=== PATIENT | female | born 1960 | race Caucasian/White ===

== ENCOUNTER → 2017-01-29 | Outpatient (CLI) | payer OTHER ==
[~2017-01-29] MED LIST: DOXY150C2; LEVO25TA6; LEVO75TA6; PANTPAK; PRO20T; PROPRANOLOL 20 MG TABLET; RANI-185; ROSU10TA16; SIMV20TA90; [UNRECOGNIZED DRUG - CODE]
[2017-01-29 15:57] LABS: Basophils # (auto) 0 uL; Basophils % (auto) 0.6 % (0.0-2.0); Eosinophils # (auto) 0.1 uL; Eosinophils % (auto) 1.8 % (0.0-7.0); Hematocrit 40.8 % (36.0-46.0); Hemoglobin 13.8 g/dL (12.2-16.2); Lymphocytes # (auto) 1.4 uL; Lymphocytes % (auto) 33.3 % (10.0-50.0); Mean Corpuscular Hgb Conc. 33.8 g/dL (32.0-36.0); Mean Corpuscular Volume 91.7 fL (80.0-100.0); Mean Platelet Volume 6.6 fL (7.4-10.4); Monocytes # (auto) 0.4 uL; Monocytes % (auto) 10.1 % (0.0-12.0); Neutrophils # (auto) 2.2 uL; Neutrophils % (auto) 54.2 % (37.0-80.0); Platelet Count (auto) 260 10^3/uL (140-450); White Blood Cell 4.1 10^3/uL (4.4-10.8)
[2017-01-29 16:10] LABS: Albumin 4.5 g/dL (3.4-5.0); BUN/Creatinine Ratio 12.6; Bilirubin, Total 0.4 mg/dL (0.2-1.0); Potassium 4.5 mmol/L (3.5-5.1); Total Protein 7.4 g/dL (6.4-8.2)
== END | disposition home or self-care (01) ==
LOC: LAB 15:19
DX: M06.9 Rheumatoid arthritis, unspecified (principal); M25.50 Pain in unspecified joint; D64.9 Anemia, unspecified; I10 Essential (primary) hypertension; Z79.899 Other long term (current) drug therapy
CPT/HCPCS: 36415; 80053; 85025; 85652; 86141

== ENCOUNTER → 2017-03-12 | Outpatient (CLI) | payer OTHER | END | disposition home or self-care (01) | LOC: LAB 14:30 | PROVIDERS: ATTEND Internal Medicine | DX: Z79.891 Long term (current) use of opiate analgesic (principal) | CPT/HCPCS: 80307 ==

== ENCOUNTER → 2017-04-30 | Outpatient (CLI) | payer OTHER ==
[2017-04-30 08:00] LABS: Basophils # (auto) 0 uL; Basophils % (auto) 0.6 % (0.0-2.0); CONDITION SAMPLE NOT VALIDATED; Eosinophils # (auto) 0.1 uL; Eosinophils % (auto) 2.2 % (0.0-7.0); Hematocrit 41.2 % (36.0-46.0); Hemoglobin 14.2 g/dL (12.2-16.2); Lymphocytes # (auto) 0.9 uL; Lymphocytes % (auto) 23.7 % (10.0-50.0); Mean Corpuscular Hemoglobin 31.7 pg (28.0-32.0); Mean Corpuscular Hgb Conc. 34.4 g/dL (32.0-36.0); Mean Platelet Volume 6.5 fL (7.4-10.4); Monocytes # (auto) 0.2 uL; Monocytes % (auto) 5.9 % (0.0-12.0); Neutrophils # (auto) 2.7 uL; Neutrophils % (auto) 67.6 % (37.0-80.0); Platelet Count (auto) 254 10^3/uL (140-450); Red Cell Distribution Width 13.4 % (11.6-16.0)
[2017-04-30 08:04] LABS: Urine Bilirubin Negative (Negative); Urine Blood Negative /uL (Negative); Urine Color Yellow (Yellow); Urine Glucose Normal (Normal); Urine Ketone Negative (Negative); Urine RBC 3 /hpf (0 - 4); Urine Squamous Epithelial Cell MOD /hpf (<5); Urine Urobilinogen Normal (Negative); Urine pH 6.5 (5.0-8.0)
[2017-04-30 08:06] LABS: Urine Nitrite POSITIVE (Negative)
[2017-04-30 08:31] LABS: Albumin 4.1 g/dL (3.4-5.0); BUN/Creatinine Ratio 14.4; Bilirubin, Total 0.3 mg/dL (0.2-1.0); Calcium 9.1 mg/dL (8.5-10.1); Potassium 4.4 mmol/L (3.5-5.1); Total Protein 7.1 g/dL (6.4-8.2)
== END | disposition home or self-care (01) ==
LOC: LAB 07:27
PROVIDERS: ATTEND Family Medicine
DX: I10 Essential (primary) hypertension (principal); R56.9 Unspecified convulsions; M06.9 Rheumatoid arthritis, unspecified; Z12.11 Encounter for screening for malignant neoplasm of colon
CPT/HCPCS: 36415; 80053; 80061; 80185; 81001; 84443; 85025; 85652

== ENCOUNTER → 2017-05-14 | Outpatient (CLI) | payer OTHER | END | disposition home or self-care (01) | LOC: LAB 15:58 | PROVIDERS: ATTEND Physician Assistant | DX: N18.2 Chronic kidney disease, stage 2 (mild) (principal) | CPT/HCPCS: 36415; 82306; 82607; 83036; 84439; 84480 ==

== ENCOUNTER 2017-08-09 15:45 | Inpatient (IN) | payer OTHER ==
[~2017-08-09] VITALS: Ht 160 cm; Wt 69.6 kg
[2017-08-09 16:17] LABS: Urine Bilirubin Negative (Negative); Urine Blood TRACE /uL (Negative); Urine Color Yellow (Yellow); Urine Glucose Normal (Normal); Urine Ketone 2+ (Negative); Urine Mucus FEW (None Seen); Urine Nitrite Negative (Negative); Urine RBC 3 /hpf (0 - 4); Urine Squamous Epithelial Cell FEW /hpf (<5)
[2017-08-09 16:32] LABS: Basophils # (auto) 0 uL; Basophils % (auto) 0.6 % (0.0-2.0); Eosinophils # (auto) 0 uL; Eosinophils % (auto) 0.6 % (0.0-7.0); Hematocrit 40.1 % (36.0-46.0); Hemoglobin 13.8 g/dL (12.2-16.2); Lymphocytes # (auto) 0.8 uL; Mean Corpuscular Hgb Conc. 34.4 g/dL (32.0-36.0); Mean Corpuscular Volume 95.9 fL (80.0-100.0); Mean Platelet Volume 6.5 fL (6.9-10.8); Monocytes # (auto) 0.4 uL; Monocytes % (auto) 6.8 % (0.0-12.0); Neutrophils # (auto) 5.2 uL; Nucleated Red Blood Cells % 0.1 %; Platelet Count (auto) 223 10^3/uL (140-450); Red Cell Distribution Width 13.5 % (11.8-14.3); White Blood Cell 6.5 10^3/uL (4.4-10.8)
[2017-08-09 16:33] LABS: Albumin 4.1 g/dL (3.4-5.0); BUN/Creatinine Ratio 14.1; Calcium 8.9 mg/dL (8.5-10.1); Potassium 4.2 mmol/L (3.5-5.1)
[2017-08-09 16:36] LABS: Bilirubin, Total 0.4 mg/dL (0.2-1.0); Total Protein 7.4 g/dL (6.4-8.2)
[2017-08-09] MEDS ORDERED: KETOROLAC TROMETH 30 MG/ML 1ML VIAL IV ONE (18:30)
[2017-08-09] MEDS ORDERED: KETOROLAC TROMETH 60MG/2ML VIAL IM ONE (18:45)
[2017-08-09 18:55] LABS: Amylase 32 U/L (25-115)
[2017-08-09] MEDS ORDERED: metroNIDAZOLE 500MG/100ML 100 ML IV ONE (20:30)
[2017-08-09] MEDS ORDERED: cefTRIAXone 1GM/50ML D5W 50 ML IV ONE (20:30)
[2017-08-09] MEDS ORDERED: ONDANSETRON HCL 4 MG/2 ML VIAL IV PRN (21:15)
[2017-08-09] MEDS ORDERED: PANTOPRAZOLE 40 MG/10 ML VIAL IV ONE (21:15)
[2017-08-09] MEDS ORDERED: MORPHINE SULF INJ 2 MG/ML SYRINGE 1ML IV PRN (21:15)
[2017-08-09] MEDS ORDERED: ACETAMINOPHEN 325 MG TAB PO PRN (21:15)
[2017-08-09] MEDS: SODIUM CHLORIDE 0.9% 1,000 ML IV SCH (21:54)
[2017-08-09] MEDS ORDERED: PROPRANOLOL HCL 20 MG TAB PO SCH (22:00)
[2017-08-09 22:28] VITALS: BP 126/79
[2017-08-09 22:45] VITALS: BP 126/79
[2017-08-09] MEDS: HYDROcodone-ACET 5/325MG TAB PO PRN (22:46)
[2017-08-09] MEDS: PRAVASTATIN SODIUM 20 MG TAB PO SCH (22:47)
[2017-08-10] MEDS ORDERED: TEMAZEPAM 15 MG CAP PO ONE (00:45)
[2017-08-10] MEDS: metroNIDAZOLE 500MG/100ML 100 ML IV SCH ×3 (03:44→20:15)
[2017-08-10] MEDS: SODIUM CHLORIDE 0.9% 1,000 ML IV SCH ×2 (04:05→23:10)
[2017-08-10] MEDS: HYDROcodone-ACET 5/325MG TAB PO PRN ×4 (04:27→18:50)
[2017-08-10 05:00] VITALS: BP 104/65
[2017-08-10 05:32] LABS: Basophils # (auto) 0 uL; Basophils % (auto) 0.5 % (0.0-2.0); Eosinophils # (auto) 0.1 uL; Eosinophils % (auto) 1.1 % (0.0-7.0); Hemoglobin 12.3 g/dL (12.2-16.2); Lymphocytes % (auto) 20.2 % (10.0-50.0); Mean Corpuscular Hemoglobin 32.7 pg (28.0-32.0); Mean Corpuscular Volume 96.1 fL (80.0-100.0); Mean Platelet Volume 6.4 fL (6.9-10.8); Monocytes # (auto) 0.4 uL; Neutrophils # (auto) 3.4 uL; Neutrophils % (auto) 70.2 % (37.0-80.0); Nucleated Red Blood Cells % 0.1 %; Platelet Count (auto) 180 10^3/uL (140-450); Red Cell Distribution Width 13.4 % (11.8-14.3); White Blood Cell 4.8 10^3/uL (4.4-10.8)
[2017-08-10 05:57] LABS: Albumin 3.5 g/dL (3.4-5.0); BUN/Creatinine Ratio 12.1; Calcium 8.5 mg/dL (8.5-10.1); Potassium 4.3 mmol/L (3.5-5.1)
[2017-08-10 06:00] LABS: Bilirubin, Total 0.3 mg/dL (0.2-1.0); Total Protein 6.5 g/dL (6.4-8.2)
[2017-08-10] MEDS: LEVOTHYROXINE SODIUM 25 MCG TAB PO SCH (06:05)
[2017-08-10] MEDS: PANTOPRAZOLE 40 MG/10 ML VIAL IV SCH (08:46)
[2017-08-10] MEDS: cefTRIAXone 1GM/50ML D5W 50 ML IV SCH (08:46)
[2017-08-10 09:00] VITALS: BP 78/32
[2017-08-10] MEDS ORDERED: ENOXAPARIN SOD 40 MG/0.4 ML SYRINGE SC SCH (10:00)
[2017-08-10] MEDS ORDERED: ALPRAZolam 0.5 MG TAB PO PRN (11:45)
[2017-08-10] MEDS ORDERED: MORPHINE SULF INJ 2 MG/ML SYRINGE 1ML IV PRN (12:00)
[2017-08-10] MEDS: TOPIRAMATE 25 MG TAB PO SCH ×2 (12:52→21:32)
[2017-08-10] MEDS: HYDROXYCHLOROQUINE SULFATE 200 MG TAB PO SCH ×2 (12:53→21:32)
[2017-08-10 13:00] VITALS: BP 89/40
[2017-08-10] MEDS: PHENYTOIN SODIUM 100 MG CAP PO SCH ×2 (13:55→21:30)
[2017-08-10] MEDS ORDERED: NITR-48 PO (15:08)
[2017-08-10] MEDS ORDERED: TOPI50TA53 PO (16:07)
[2017-08-10] MEDS ORDERED: ALPR1TAB7 PO (16:09)
[2017-08-10] MEDS ORDERED: QUET50TA PO (16:10)
[2017-08-10] MEDS ORDERED: PHE100C PO (16:11)
[2017-08-10] MEDS ORDERED: PANT40TA2 PO (16:12)
[2017-08-10] MEDS ORDERED: MELO-85 PO (16:13)
[2017-08-10] MEDS ORDERED: HYDR200T36 PO (16:13)
[2017-08-10] MEDS ORDERED: ERGO1CAP6 PO (16:14)
[2017-08-10] MEDS ORDERED: ROSU10TA16 PO (16:15)
[2017-08-10] MEDS ORDERED: POM PO (16:19)
[2017-08-10 17:35] VITALS: BP 111/62
[2017-08-10] MEDS: PRAVASTATIN SODIUM 20 MG TAB PO SCH (21:31)
[2017-08-10] MEDS: ALPRAZolam 0.5 MG TAB PO PRN (21:47)
[2017-08-10] MEDS: KETOROLAC TROMETH 30 MG/ML 1ML VIAL IV PRN (21:48)
[2017-08-10 22:11] VITALS: BP 109/55
[2017-08-11] MEDS: HYDROcodone-ACET 5/325MG TAB PO PRN ×2 (00:56→09:11)
[2017-08-11] MEDS: metroNIDAZOLE 500MG/100ML 100 ML IV SCH ×3 (03:43→20:03)
[2017-08-11 04:46] VITALS: BP 100/55
[2017-08-11] MEDS: PHENYTOIN SODIUM 100 MG CAP PO SCH ×3 (05:23→21:50)
[2017-08-11] MEDS: LEVOTHYROXINE SODIUM 25 MCG TAB PO SCH (05:24)
[2017-08-11] MEDS: ALPRAZolam 0.5 MG TAB PO PRN ×3 (05:44→21:50)
[2017-08-11] MEDS: KETOROLAC TROMETH 30 MG/ML 1ML VIAL IV PRN ×3 (05:45→18:34)
[2017-08-11] MEDS: PANTOPRAZOLE 40 MG/10 ML VIAL IV SCH (06:00)
[2017-08-11 06:34] LABS: Basophils # (auto) 0 uL; Basophils % (auto) 0.6 % (0.0-2.0); Eosinophils # (auto) 0 uL; Eosinophils % (auto) 1.3 % (0.0-7.0); Hematocrit 32.3 % (36.0-46.0); Hemoglobin 11.2 g/dL (12.2-16.2); Lymphocytes # (auto) 0.9 uL; Lymphocytes % (auto) 27.8 % (10.0-50.0); Mean Corpuscular Hemoglobin 33.2 pg (28.0-32.0); Mean Corpuscular Hgb Conc. 34.9 g/dL (32.0-36.0); Mean Corpuscular Volume 95.3 fL (80.0-100.0); Mean Platelet Volume 6.5 fL (6.9-10.8); Monocytes # (auto) 0.3 uL; Neutrophils % (auto) 61.3 % (37.0-80.0); Nucleated Red Blood Cells % 0.1 %; Platelet Count (auto) 174 10^3/uL (140-450); Red Cell Distribution Width 13.2 % (11.8-14.3); White Blood Cell 3.2 10^3/uL (4.4-10.8)
[2017-08-11 06:57] LABS: BUN/Creatinine Ratio 8.3; Calcium 7.9 mg/dL (8.5-10.1); Potassium 3.9 mmol/L (3.5-5.1)
[2017-08-11 08:00] VITALS: BP 107/62
[2017-08-11] MEDS: cefTRIAXone 1GM/50ML D5W 50 ML IV SCH (09:03)
[2017-08-11] MEDS: HYDROXYCHLOROQUINE SULFATE 200 MG TAB PO SCH ×2 (09:04→21:50)
[2017-08-11] MEDS: TOPIRAMATE 25 MG TAB PO SCH ×2 (09:04→21:50)
[2017-08-11] MEDS: SODIUM CHLORIDE 0.9% 1,000 ML IV SCH ×2 (09:11→23:20)
[2017-08-11 12:00] VITALS: BP 126/90
[2017-08-11 17:00] VITALS: BP 130/84
[2017-08-11] MEDS: PRAVASTATIN SODIUM 20 MG TAB PO SCH (21:50)
[2017-08-11 22:00] VITALS: BP 144/79
[2017-08-12] MEDS: KETOROLAC TROMETH 30 MG/ML 1ML VIAL IV PRN ×4 (00:46→17:30)
[2017-08-12] MEDS: metroNIDAZOLE 500MG/100ML 100 ML IV SCH ×3 (04:12→20:31)
[2017-08-12 05:00] VITALS: BP 97/54
[2017-08-12] MEDS: PHENYTOIN SODIUM 100 MG CAP PO SCH ×3 (06:22→22:01)
[2017-08-12] MEDS: LEVOTHYROXINE SODIUM 25 MCG TAB PO SCH (06:23)
[2017-08-12 07:41] VITALS: BP 139/75
[2017-08-12] MEDS: ALPRAZolam 0.5 MG TAB PO PRN ×2 (09:13→17:30)
[2017-08-12] MEDS: HYDROcodone-ACET 5/325MG TAB PO PRN ×2 (09:13→20:40)
[2017-08-12] MEDS: cefTRIAXone 1GM/50ML D5W 50 ML IV SCH (09:13)
[2017-08-12] MEDS: HYDROXYCHLOROQUINE SULFATE 200 MG TAB PO SCH ×2 (09:21→22:01)
[2017-08-12] MEDS: PANTOPRAZOLE 40 MG/10 ML VIAL IV SCH (09:21)
[2017-08-12] MEDS: TOPIRAMATE 25 MG TAB PO SCH ×2 (09:22→22:01)
[2017-08-12 11:16] VITALS: BP 123/84
[2017-08-12] MEDS: SODIUM CHLORIDE 0.9% 1,000 ML IV SCH (11:44)
[2017-08-12] MEDS ORDERED: TEMAZEPAM 15 MG CAP PO PRN (14:00)
[2017-08-12 14:53] LABS: Basophils # (auto) 0 uL; Basophils % (auto) 1.4 % (0.0-2.0); Eosinophils # (auto) 0.1 uL; Eosinophils % (auto) 1.7 % (0.0-7.0); Hematocrit 36.7 % (36.0-46.0); Hemoglobin 12.3 g/dL (12.2-16.2); Lymphocytes % (auto) 30.3 % (10.0-50.0); Mean Corpuscular Hemoglobin 32.4 pg (28.0-32.0); Mean Corpuscular Hgb Conc. 33.6 g/dL (32.0-36.0); Mean Corpuscular Volume 96.2 fL (80.0-100.0); Mean Platelet Volume 6.5 fL (6.9-10.8); Monocytes # (auto) 0.3 uL; Monocytes % (auto) 10.2 % (0.0-12.0); Neutrophils # (auto) 1.8 uL; Neutrophils % (auto) 56.4 % (37.0-80.0); Platelet Count (auto) 210 10^3/uL (140-450); Red Cell Distribution Width 13.4 % (11.8-14.3); White Blood Cell 3.2 10^3/uL (4.4-10.8)
[2017-08-12 16:23] VITALS: BP 130/79
[2017-08-12 22:00] VITALS: BP 109/62
[2017-08-12] MEDS: PRAVASTATIN SODIUM 20 MG TAB PO SCH (22:01)
[2017-08-13] MEDS: metroNIDAZOLE 500MG/100ML 100 ML IV SCH ×2 (04:19→12:25)
[2017-08-13] MEDS: KETOROLAC TROMETH 30 MG/ML 1ML VIAL IV PRN ×2 (04:29→10:53)
[2017-08-13 05:00] VITALS: BP 107/65
[2017-08-13] MEDS: PHENYTOIN SODIUM 100 MG CAP PO SCH ×2 (06:33→14:10)
[2017-08-13] MEDS: LEVOTHYROXINE SODIUM 25 MCG TAB PO SCH (06:33)
[2017-08-13] MEDS: SODIUM CHLORIDE 0.9% 1,000 ML IV SCH ×2 (06:33→12:44)
[2017-08-13 08:52] VITALS: BP 133/79
[2017-08-13] MEDS: HYDROXYCHLOROQUINE SULFATE 200 MG TAB PO SCH (09:50)
[2017-08-13] MEDS: TOPIRAMATE 25 MG TAB PO SCH (09:50)
[2017-08-13] MEDS: PANTOPRAZOLE 40 MG/10 ML VIAL IV SCH (09:50)
[2017-08-13] MEDS: cefTRIAXone 1GM/50ML D5W 50 ML IV SCH (09:50)
[2017-08-13] MEDS: ALPRAZolam 0.5 MG TAB PO PRN (10:53)
[2017-08-13 13:26] VITALS: BP 114/73
[2017-08-13 13:54] VITALS: BP 114/73
[2017-08-13] MEDS: HYDROcodone-ACET 5/325MG TAB PO PRN (14:10)
== END 2017-08-13 15:58 | disposition home or self-care (01) | DRG 392 ==
LOC: ER 15:47 → EAST 15:48
PROVIDERS: ADMIT Nurse Practitioner; ATTEND Internal Medicine
DX: K57.32 Diverticulitis of large intestine without perforation or abscess without bleeding (principal); K86.1 Other chronic pancreatitis; I10 Essential (primary) hypertension; N39.0 Urinary tract infection, site not specified; G40.909 Epilepsy, unspecified, not intractable, without status epilepticus; E78.5 Hyperlipidemia, unspecified; K21.9 Gastro-esophageal reflux disease without esophagitis; E03.9 Hypothyroidism, unspecified; M06.9 Rheumatoid arthritis, unspecified; R16.1 Splenomegaly, not elsewhere classified; F17.210 Nicotine dependence, cigarettes, uncomplicated; F41.9 Anxiety disorder, unspecified; Z86.73 Personal history of transient ischemic attack (TIA), and cerebral infarction without residual deficits; Z82.49 Family history of ischemic heart disease and other diseases of the circulatory system; Z98.51 Tubal ligation status; Z79.899 Other long term (current) drug therapy
CPT/HCPCS: 36415; 74176; 80048; 80053; 80185; 81001; 82150; 83690; 85025; 87081; 96365; 96368; 96372; 99291; C9113; J0696; J1885; J3490

== ENCOUNTER → 2018-04-09 | Outpatient (CLI) | payer OTHER ==
[~2018-04-09] MED LIST changes: +ALPR1TAB7 PO; -DOXY150C2; +ERGO1CAP6 PO; +HYDR200T36 PO; -LEVO25TA6; +MELO1TAB73 PO; +NITR-48 PO; +PANT40TA2 PO; -PANTPAK; +PHE100C PO; +POM PO; -PROPRANOLOL 20 MG TABLET; +QUET50TA PO; -RANI-185; -ROSU10TA16; +ROSU10TA16 PO; -SIMV20TA90; +TOPI50TA53 PO; -[UNRECOGNIZED DRUG - CODE]
[2018-04-09 09:33] LABS: Basophils # (auto) 0 uL; Basophils % (auto) 0.7 % (0.0-2.0); Eosinophils # (auto) 0.1 uL; Eosinophils % (auto) 1.6 % (0.0-7.0); Hematocrit 42.7 % (36.0-46.0); Hemoglobin 14.3 g/dL (12.2-16.2); Lymphocytes % (auto) 21.8 % (10.0-50.0); Mean Corpuscular Hemoglobin 32.2 pg (28.0-32.0); Mean Corpuscular Hgb Conc. 33.4 g/dL (32.0-36.0); Mean Corpuscular Volume 96.3 fL (80.0-100.0); Monocytes # (auto) 0.2 uL; Monocytes % (auto) 5.4 % (0.0-12.0); Neutrophils # (auto) 3.1 uL; Neutrophils % (auto) 70.5 % (37.0-80.0); Nucleated Red Blood Cells % 0.1 %; Platelet Count (auto) 275 10^3/uL (140-450); Red Blood Cells 4.43 10^6/uL (4.0-5.20); Red Cell Distribution Width 13.1 % (11.8-14.3); White Blood Cell 4.4 10^3/uL (4.4-10.8)
[2018-04-09 10:13] LABS: Bilirubin, Total 0.2 mg/dL (0.2-1.0); Calcium 8.7 mg/dL (8.5-10.1); Potassium 4.9 mmol/L (3.5-5.1); Total Protein 7.2 g/dL (6.4-8.2)
== END | disposition home or self-care (01) ==
LOC: LAB 09:05
PROVIDERS: ATTEND Family Medicine
DX: M06.9 Rheumatoid arthritis, unspecified (principal); K21.9 Gastro-esophageal reflux disease without esophagitis; E78.5 Hyperlipidemia, unspecified; E03.9 Hypothyroidism, unspecified; N18.2 Chronic kidney disease, stage 2 (mild)
CPT/HCPCS: 36415; 80053; 80061; 85025

== ENCOUNTER → 2018-08-05 | Outpatient (CLI) | payer OTHER ==
[~2018-08-05] MED LIST changes: -NITR-48 PO; +NITR100C44 PO
[2018-08-05 10:47] LABS: Alcohol, Urine < 3.0 mg/dL (0-5); Amphetamine Screen, Urine NEGATIVE (NEGATIVE); Barbiturate Scree,Urine NEGATIVE (NEGATIVE); Benzodiazephine Screen, Urine POSITIVE (NEGATIVE); Cannabinoid Screen, Urine NEGATIVE (NEGATIVE); Cocaine Screen, Urine NEGATIVE (NEGATIVE); Opiate Scree,Urine POSITIVE (NEGATIVE); Phencyclidine Screen, Urine NEGATIVE (NEGATIVE)
== END | disposition home or self-care (01) ==
LOC: LAB 10:07
PROVIDERS: ATTEND Nurse Practitioner
DX: Z02.83 Encounter for blood-alcohol and blood-drug test (principal); F41.9 Anxiety disorder, unspecified; F17.200 Nicotine dependence, unspecified, uncomplicated
CPT/HCPCS: 80307

== ENCOUNTER → 2018-09-18 | Outpatient (CLI) | payer OTHER ==
[2018-09-18 08:30] LABS: Basophils # (auto) 0 uL; Basophils % (auto) 0.5 % (0.0-2.0); Eosinophils # (auto) 0.1 uL; Eosinophils % (auto) 2.2 % (0.0-7.0); Hematocrit 41.7 % (36.0-46.0); Hemoglobin 13.9 g/dL (12.2-16.2); Lymphocytes # (auto) 0.7 uL; Lymphocytes % (auto) 27.1 % (10.0-50.0); Mean Corpuscular Hemoglobin 32.8 pg (28.0-32.0); Mean Corpuscular Hgb Conc. 33.4 g/dL (32.0-36.0); Mean Corpuscular Volume 98.4 fL (80.0-100.0); Monocytes # (auto) 0.2 uL; Monocytes % (auto) 6.4 % (0.0-12.0); Neutrophils # (auto) 1.6 uL; Neutrophils % (auto) 63.8 % (37.0-80.0); Platelet Count (auto) 154 10^3/uL (140-450); Red Blood Cells 4.23 10^6/uL (4.0-5.20); Red Cell Distribution Width 13.2 % (11.8-14.3); White Blood Cell 2.5 10^3/uL (4.4-10.8)
[2018-09-18 08:36] LABS: Urine Bacteria FEW /hpf (None Seen); Urine Blood Negative /uL (Negative); Urine Mucus FEW (None Seen); Urine Specific Gravity 1.014 (1.001-1.035); Urine WBC 14 /hpf (0 - 5)
[2018-09-18 09:55] LABS: Calcium 8.2 mg/dL (8.5-10.1); Potassium 4.2 mmol/L (3.5-5.1)
[2018-09-18 09:58] LABS: Bilirubin, Total 0.2 mg/dL (0.2-1.0); Total Protein 6.9 g/dL (6.4-8.2)
[2018-09-18 10:41] LABS: Albumin 3.9 g/dL (3.4-5.0); BUN/Creatinine Ratio 16.7
== END | disposition home or self-care (01) ==
LOC: LAB 07:22
PROVIDERS: ATTEND Nurse Practitioner
DX: E78.5 Hyperlipidemia, unspecified (principal)
CPT/HCPCS: 36415; 80053; 80061; 81001; 82306; 83036; 84443; 85025

== ENCOUNTER → 2019-04-24 | Outpatient (CLI) | payer OTHER ==
[2019-04-24 14:26] LABS: Urine Bacteria FEW /hpf (None Seen); Urine Blood Negative /uL (Negative); Urine Hyaline Cast FEW /lpf (0 - 2); Urine Specific Gravity 1.017 (1.001-1.035); Urine WBC 54 /hpf (0 - 5)
== END | disposition home or self-care (01) ==
LOC: LAB 13:56
PROVIDERS: ATTEND Psychiatry & Neurology Neurology
DX: N39.0 Urinary tract infection, site not specified (principal)
CPT/HCPCS: 81001

== ENCOUNTER → 2019-06-25 | Outpatient (CLI) | payer OTHER ==
[2019-06-25 15:07] LABS: Urine Bacteria MOD /hpf (None Seen); Urine Blood Negative /uL (Negative); Urine Hyaline Cast FEW /lpf (0 - 2); Urine Mucus FEW (None Seen); Urine Specific Gravity 1.011 (1.001-1.035); Urine WBC 81 /hpf (0 - 5)
== END | disposition home or self-care (01) ==
LOC: LAB 14:42
PROVIDERS: ATTEND Nurse Practitioner
DX: N39.0 Urinary tract infection, site not specified (principal)
CPT/HCPCS: 81001; 87086

== ENCOUNTER → 2019-07-31 | Outpatient (CLI) | payer OTHER | END | disposition home or self-care (01) | LOC: LAB 15:27 | PROVIDERS: ATTEND Urology | DX: N39.0 Urinary tract infection, site not specified (principal); E78.5 Hyperlipidemia, unspecified | CPT/HCPCS: 87086 ==

== ENCOUNTER → 2019-08-13 | Outpatient (CLI) | payer OTHER | END | disposition home or self-care (01) | LOC: LAB 08:33 | PROVIDERS: ATTEND Urology | DX: N39.0 Urinary tract infection, site not specified (principal) | CPT/HCPCS: 87086 ==

== ENCOUNTER → 2019-12-09 | Outpatient (CLI) | payer OTHER ==
[2019-12-09 08:17] LABS: Basophils # (auto) 0 uL; Basophils % (auto) 0.5 % (0.0-2.0); Eosinophils # (auto) 0 uL; Eosinophils % (auto) 0.6 % (0.0-7.0); Hematocrit 36.3 % (36.0-46.0); Hemoglobin 12.4 g/dL (12.2-16.2); Lymphocytes # (auto) 1.2 uL; Lymphocytes % (auto) 20.5 % (10.0-50.0); Mean Corpuscular Hemoglobin 32.1 pg (28.0-32.0); Mean Corpuscular Hgb Conc. 34.1 g/dL (32.0-36.0); Mean Corpuscular Volume 94.2 fL (80.0-100.0); Monocytes # (auto) 0.7 uL; Monocytes % (auto) 11.9 % (0.0-12.0); Neutrophils # (auto) 3.8 uL; Neutrophils % (auto) 66.5 % (37.0-80.0); Nucleated Red Blood Cells % 0.1 %; Platelet Count (auto) 269 10^3/uL (140-450); Red Blood Cells 3.86 10^6/uL (4.0-5.20); Red Cell Distribution Width 13.2 % (11.8-14.3); White Blood Cell 5.8 10^3/uL (4.4-10.8)
[2019-12-09 08:20] LABS: Urine Bacteria FEW /hpf (None Seen); Urine Blood Negative /uL (Negative); Urine Specific Gravity 1.005 (1.001-1.035); Urine WBC 5 /hpf (0 - 5)
[2019-12-09 08:36] LABS: Albumin 3.2 g/dL (3.4-5.0); Calcium 9.1 mg/dL (8.5-10.1); Potassium 4.1 mmol/L (3.5-5.1)
[2019-12-09 08:40] LABS: BUN/Creatinine Ratio 9.1; Bilirubin, Total 0.4 mg/dL (0.2-1.0); Total Protein 7.4 g/dL (6.4-8.2)
== END | disposition home or self-care (01) ==
LOC: LAB 07:51
PROVIDERS: ATTEND Nurse Practitioner
DX: Z00.00 Encounter for general adult medical examination without abnormal findings (principal); E78.5 Hyperlipidemia, unspecified
CPT/HCPCS: 36415; 80053; 80061; 81001; 82306; 84443; 85025